=== PATIENT | female | born 1945 | race Caucasian/White ===

== ENCOUNTER 2020-11-08 14:13 | Outpatient (CLI) | payer MEDICARE, SELFPAY | END 2020-11-08 14:14 | disposition home or self-care (01) | LOC: ANHCOVIDVC 14:14 | PROVIDERS: PCP Family Medicine Adolescent Medicine | DX: Z23 Encounter for immunization (principal) | CPT/HCPCS: 0001A; 91300 ==

== ENCOUNTER 2020-11-29 14:14 | Outpatient (CLI) | payer MEDICARE, SELFPAY | END 2020-11-29 14:15 | disposition home or self-care (01) | LOC: ANHCOVIDVC 14:14 | PROVIDERS: PCP Family Medicine Adolescent Medicine | DX: Z23 Encounter for immunization (principal) | CPT/HCPCS: 0002A; 91300 ==

== ENCOUNTER → 2021-02-22 10:55 | Outpatient (CLI) | payer MEDICARE, SELFPAY ==
--- NOTE | ~2021-02-22 | MR_ITS ---
EXAMINATION: MR foot LT wo con DATE: 02/22/2021 11:51 INDICATION: Stress fracture. TECHNIQUE: Magnetic resonance imaging (MRI) of the left fore/mid foot was performed without intraveno us contrast. Sequences included sagittal and coronal T1-weighted FSE, axial, sagittal and coronal flu id sensitive FSE STIR and axial PD-weighted FSE. COMPARISON: Radiograph dated 12/27/2009 FINDINGS: There is magnetic monae artifact associated with fixation screws at the distal diaphysis of the left first metatarsal and associated with a cerclage wire along the medial cortex of the diaphysis of the first proximal phalanx. 35 degree hallux valgus. Old fracture of the fifth metatarsal neck which has healed with 30 degree medial angulation. There is marrow edema at the base of the third metatarsal a nd at the juxtaposed lateral cuneiform and to a less degree at the medial cuneiform. No discrete line ar low signal intensity fracture lines appreciated. Differential would include reactive edema related to the severe osteoarthritis versus related to stress injury or bone contusion. Moderate osteoarthri tis at the third and fourth tarsal metatarsal joints. Mild osteoarthritis at the first and fifth meta tarsophalangeal, the tarsal metatarsal the Lisfranc ligament complex is normal as are the medial and lateral collateral ligament complex at the metatarsophalangeal joints. Flexor and extensor tendons ar e normal. Physiologic amount fluid in the joint space. No abscess, tenosynovitis or other abnormal fl uid collections identified. IMPRESSION: 1. 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 2. Marrow edema at the base of the third metatarsal and at the medial and lateral cuneiforms without evident fracture lines. Differential would include reactive edema related to the osteoarthritis at th e tarsometatarsal joints, stress reaction or bone contusions. 2. 35 degrees hallux valgus with postoperative changes suggesting prior realignment osteotomies at th e neck of the first metatarsal and at the medial neck of the first proximal phalanx. Reviewed, dictated and finalized at location A. IMPRESSION: 1. Polyarticular osteoarthritis, moderate to severe at the third and fourth tar jo ann metatarsal joints. 2. Marrow edema at the base of the third metatarsal and at the medial and later al cuneiforms without evident fracture lines. Differential would include reacti ve edema related to the osteoarthritis at the tarsometatarsal joints, stress re action or bone contusions. 2. 35 degrees hallux valgus with postoperative changes suggesting prior realign ment osteotomies at the neck of the first metatarsal and at the medial neck of the first proximal phalanx.
== END ==
PROVIDERS: Visit Provider Podiatrist Foot & Ankle Surgery
DX: M84.375A Stress fracture, left foot, initial encounter for fracture (principal); M19.072 Primary osteoarthritis, left ankle and foot; M79.89 Other specified soft tissue disorders; M20.12 Hallux valgus (acquired), left foot; Z98.890 Other specified postprocedural states
CPT/HCPCS: 73718

== ENCOUNTER → 2022-06-07 11:35 | Outpatient (CLI) | payer MEDICARE, SELFPAY ==
--- NOTE | ~2022-06-07 | XR_ITS ---
XR chest 2V 06/07/2022 11:55 Indication: Mid chest pain Procedure: 2 view chest Comparison: No prior studies for comparison. Findings: Heart size normal. No focal air space disease, pulmonary edema, pleural effusion or suspect ed pneumothorax. There is accentuated thoracic kyphosis with mild multilevel spondylosis. There is a left shoulder arthroplasty. There is atherosclerosis of the aorta. The lungs are hyperinflated which is consistent with, but not diagnostic of chronic obstructive pulmo nary disease. Impression: 1: No acute cardiopulmonary disease. Reviewed, dictated and finalized at location A. Impression: 1: No acute cardiopulmonary disease.
== END ==
PROVIDERS: PCP Physician Assistant; Visit Provider Physician Assistant
DX: R07.9 Chest pain, unspecified (principal)
CPT/HCPCS: 71046

== ENCOUNTER 2022-11-07 10:18 | Outpatient (CLI) | payer MEDICARE, SELFPAY ==
--- NOTE | ~2022-11-07 | US_ITS ---
Limited Abdominal Sonogram: Real-time sonographic imaging of the right upper quadrant was performed. Clinical History: Abdominal pain Findings: The liver appears normal with no evidence of mass lesion or bile duct dilatation. Main por priscila vein demonstrates normal direction of flow. The gallbladder is well distended, and appears normal with no evidence of gallstone or wall thickening. The common bile duct measures 5 mm. The visualize d pancreas, aorta, and IVC are unremarkable. Impression: No significant abnormality seen. Reviewed, dictated and finalized at location . Impression: No significant abnormality seen.
== END 2022-11-07 10:19 | disposition home or self-care (01) ==
PROVIDERS: PCP Family Medicine Adolescent Medicine
DX: R10.13 Epigastric pain (principal)
CPT/HCPCS: 76705

== ENCOUNTER 2024-05-01 10:27 | Outpatient (CLI) | payer MEDICARE, SELFPAY ==
--- NOTE | 2024-05-03 13:44 | WPDNEUROLOGY ---
Neurology EEG Report General Information Date of Study: 05/01/24 TEST eeg DIAGNOSIS Near syncopal episode CONDITION OF RECORDING awake and drowsy EEG NUMBER [id number] CLINICAL HISTORY patient reports she is hypoglycemic and have episodes of shakiness and weakness. EEG DESCRIPTION Basic resting occipital frequency consists of medium voltage 8 to 10 hertz per 2nd alpha admixed with minimal amount of low-voltage 15 to 18 hertz per 2nd beta activity.. Good sallie posterior gradient noted. low voltage beta activity seen diffusely admixed with waxing and and waning posterior alpha rhythm. Photic stimulation produced normal activity. hyperventilation not done. Non paroxysmal. Nonfocal. Non lateralizing. IMPRESSION Normal record
== END 2024-05-01 10:28 | disposition home or self-care (01) ==
PROVIDERS: PCP Family Medicine Adolescent Medicine; Visit Provider Nurse Practitioner Family
DX: R55 Syncope and collapse (principal)
CPT/HCPCS: 95816